=== PATIENT | female | born 1965 | race Caucasian/White ===

== ENCOUNTER 2020-05-07 14:15 | Inpatient (IN) | payer MEDICAID ==
[~2020-05-07] VITALS: Ht 162.6 cm; Wt 158.8 kg
[2020-05-07 14:38] LABS: BASO % 0.3 % (0.0-1.0); EOS # 0.3 10*3/uL (0.0-0.4); EOS % 4.3 % (1.0-4.0); HEMATOCRIT 37.7 % (37.0-47.0); LYMPH # 0.9 10*3/uL (1.3-4.4); LYMPH % 11.4 % (27.0-41.0); MEAN CELL VOLUME 84.7 fl (81.0-99.0); MEAN CORPUSCULAR HGB 26.5 pg (27.0-31.0); MEAN CORPUSCULAR HGB CONC 31.3 g/dl (33.0-37.0); MEAN PLATELET VOLUME 10.8 fl (9.6-12.3); MONO # 0.5 10*3/uL (0.1-1.0); MONO % 6.7 % (3.0-9.0); NEUT # 5.9 10*3/uL (2.3-7.9); NEUT % 76.4 % (47.0-73.0); PLATELET COUNT AUTOMATED 242 10*3/uL (130-400); RED BLOOD COUNT 4.45 10*6/uL (4.10-5.10); RED CELL DISTRI WIDTH 16.5 % (0-14.5); WHITE BLOOD COUNT 7.7 10*3/uL (4.8-10.8)
[2020-05-07 14:40] VITALS: BP 138/86
[2020-05-07 14:48] LABS: ACT PARTIAL THROMBO TIME 23.5 SECONDS (20.0-32.1)
[2020-05-07 15:04] LABS: ALBUMIN 3.1 gm/dl (3.1-4.5); ALKALINE PHOSPHATASE 92 U/L (45-117); BUN 21 mg/dl (7-24); CHLORIDE 108 mmol/L (98-107); CREATININE 0.75 mg/dL (0.55-1.02); POTASSIUM 4.3 mmol/L (3.5-5.1); SGOT/AST 10 IU/L (3-35); SGPT/ALT 21 U/L (12-78); SODIUM 140 mmol/L (136-145); TOTAL PROTEIN 6.6 gm/dL (6.4-8.2)
[2020-05-07 15:05] LABS: TROPONIN I < 0.015 ng/ml (<0.045)
[2020-05-07 16:17] VITALS: BP 130/82
--- NOTE | 2020-05-07 17:06 | NUR ---
A 54, admitted to , under the services of Dr. JAD HENDERSON,GABY Amezquita with a diagnosis of CHEST PAIN. Chief complaint is CHEST PAIN. Patient arrived via stretcher from ER. Monitor applied. Initial assessment completed. Vital signs taken and recorded. DR. JAD HENDERSON,GABY Amezquita notified of admission to the unit. Orders received. See assessment for past medical history, medications and allergies. Patient and/or family oriented to unit. [address] visitation policy reviewed. Clothing/patient valuable form completed. LUÍS WOODALL
[2020-05-07 17:22] LABS: BILIRUBIN 1+ (NEGATIVE); BLOOD NEGATIVE (NEGATIVE); CLARITY SL CLOUDY (CLEAR); COLOR YELLOW (YELLOW); GLUCOSE NEGATIVE (NEGATIVE); KETONE NEGATIVE (NEGATIVE); LEUKO ESTERASE TRACE (NEGATIVE); NITRITE NEGATIVE (NEGATIVE); SPECIFIC GRAVITY 1.025 (1.005-1.030); UROBILINOGEN 0.2 E.U./dl (0.2-1.0)
[2020-05-07 17:23] LABS: BACTERIA 2+; EPITHELIAL CELLS TNTC
--- NOTE | 2020-05-07 17:53 | NUR ---
ATTEMPTED TO CALL FOR ADMISSION ORDERS. AWAITING CALL BACK.
--- NOTE | 2020-05-07 18:00 | NUR ---
SPROKE WITH JAD REGARDING NEW ADMISSION. SEE NEW ORDERS.
[2020-05-07] MEDS ORDERED: ASPIRIN81 M1 PO (18:36)
[2020-05-07] MEDS ORDERED: CITALOPRAM40 MG PO (18:37)
[2020-05-07] MEDS ORDERED: CLONIDINE0.2 MG PO (18:40)
[2020-05-07] MEDS ORDERED: CYCLOBENZAPRINE10 MG PO (18:41)
[2020-05-07] MEDS ORDERED: HYDRALAZINE HYD50 MG PO (18:42)
[2020-05-07] MEDS ORDERED: IBU600 M1 PO (18:48)
[2020-05-07] MEDS ORDERED: LOVASTATIN20 MG PO (18:48)
[2020-05-07] MEDS ORDERED: LOSARTAN POTASS25 M1 PO (18:48)
[2020-05-07] MEDS ORDERED: METFORMIN HYDR750 MG PO (18:49)
[2020-05-07] MEDS ORDERED: Magnesium Oxid400 MG PO (18:49)
[2020-05-07] MEDS ORDERED: LOPRESSOR100 M1 PO (18:50)
[2020-05-07] MEDS ORDERED: PANTOPRAZOLE SO40 MG PO (18:51)
[2020-05-07] MEDS ORDERED: KLOR-CON M2020 ME1 PO (18:51)
[2020-05-07] MEDS ORDERED: NON-ASPIRIN EX500 M1 PO (18:52)
[2020-05-07] MEDS ORDERED: TRAZODONE100 MG PO (18:53)
[2020-05-07] MEDS ORDERED: QVAR REDIHALE10.6 GM INH (18:53)
[2020-05-07] MEDS ORDERED: VICTOZA 3-0.6 MG/0.1 SC (18:55)
[2020-05-07] MEDS ORDERED: VITAMIN D350 MC1 PO (18:56)
[2020-05-07] MEDS ORDERED: PROVENTIL HFA6.7 GM INH (18:58)
[2020-05-07] MEDS ORDERED: HYDROXYZINE PAM25 M1 PO (18:58)
[2020-05-07] MEDS ORDERED: CLONIDINE0.3 MG PO (19:03)
[2020-05-07 20:00] VITALS: BP 133/85
--- NOTE | 2020-05-07 21:15 | NUR ---
SPOKE WITH DR. STREET AT THIS TIME. PATIENT STATES THAT THE TYLENOL IS INEFFECTIVE FOR PAIN. AND PATIENT STATES SHE FEELS SHE HAS A LOT OF GAS AND HER ABDOMEN HURTS. PATIENT STATES WHEN PUSHING ON HER CHEST IT ALSO HURTS. PATIENT STATED THIS HAS BEEN GOING ON FOR A WEEK. WELL HAVING LIQUID STOOLS OFF AND ON. SHE STATES THE PAIN IS WORSE AFTER SHE EATS. SHE ALSO STATED SHE HAD TO HAVE HER GALLBLADDER OUT DUE TO STONES AND HAS HAD STENTS IN HER BILE DUCTS. THIS WAS ALL RELAYED TO DR. STREET WHO ORDERED ANOTHER EKG AND ORDERED QUESTRAN 2G TID TO START NOW
--- NOTE | 2020-05-07 23:15 | NUR ---
SPOKE WITH DR. STREET AT THIS TIME, PATIENT IS INSISTANT ABOUT HAVING FLEXERIL AND VISTARIL. DR. STREET STATED IT WAS OK TO CONTINUE
--- NOTE | 2020-05-07 23:54 | NUR ---
FLEXERIL AND VISTARIL ADMINISTERED FOR PT C/O ANXIETY AND LEG CRAMPS. WILL MONITOR.
[2020-05-08] VITALS: BP 119/61
--- NOTE | 2020-05-08 00:40 | NUR ---
PATIENT STATED THAT QUESTRAN WAS EFFECTIVE FOR HER PAIN AND DISCOMFORT
--- NOTE | 2020-05-08 02:38 | NUR ---
24 HR chart check completed.
--- NOTE | 2020-05-08 07:20 | NUR ---
BARON STARKS [id number] Please refer to the physician's history and physical for past medical history, comorbid conditions, and allergies. Diagnosis: CHEST PAIN WITH LOW RISK FOR CARDIAC ETIOLOGY Alexandre Score: 18,AT RISK WOUND DESCRIPTIONS: This nurse went to assess patient for skin impairment. 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 No drainage at time of assessment. No odor noted at time of assessment. Surface the patient is resting on: Proform SKIN PREVENTION RECOMMENDATION: 1. Pressure redistribution support surface as appropriate 2. Elevate heels 3. Remove boots/TEDS every shift and reapply 4. Head of bed 30 degrees as tolerated 5. Assess nutrition and hydration 6. Manage moisture 7. Avoid the use of containment devices while in bed 8. Use absorptive products on surfaces limit layers of linens on bed 9. Turn and reposition every 1-2 hours in bed and every 1 hour in chair as tolerated 10. Weight shifts every 15 minutes while up in chair 11. Offloading with pillows or device to keep heels elevated off bed 12. Monitor skin at least every shift 13. Inspect under medical devices twice a day WOUND TREATMENT RECOMMENDATIONS: Cleanse right lower quadrant ostomy site with nss and apply optifoam gentle every 2 days and prn for soiling.
--- NOTE | 2020-05-08 07:45 | NUR ---
PHYSICAL THERAPY Screen recieved, patient admitted from home with acute chest pain. Please consult PT is patient has decline in functional status below baseline. Thank you. Jeevan Silvestre SPT Rin Arceo PT
--- NOTE | 2020-05-08 07:45 | NUR ---
INFORMED NURSE ABOUT PATIENT COMPLAING OF PAIN OF 10 ON PAIN SCALE IN STERUN AREA AND UNDER LEFT BREAST. CASEY MCCORMACK
[2020-05-08 08:00] VITALS: BP 142/74
--- NOTE | 2020-05-08 08:38 | NUR ---
24 HR CHART CHECK COMPLETE.
--- NOTE | 2020-05-08 08:39 | NUR ---
Nursing screen received and chart was reviwed. Patient is a 54 y/o female under observation for chest pain. If patient has a decline with ADLs, functional mobility or transfers please send occupational therapy orders. Thank you. Rosalba Ronquillo OTR/L
--- NOTE | 2020-05-08 09:00 | NUR ---
Secondary Spanish Teacher in to talk to patient. Patient states lives at [facility]. There are 0 steps in the home. Physician: Dr. Ricky Resendiz Pharmacy: [facility] Home health services: none Patient's level of ADLs: MINIMAL ASSIST Patient has working utilities: yes DME: cane, walker, requesting a bariatric rollator Follow-up physician's appointment after d/c: she prefers to make her own follow up appt after discharge Does patient want to access PORTAL?: no Discharge plan discussed with patient. She lives at [facility]. She states she is independent in her ADLs and either ambulates with a cane or a walker. She would like a scooter but [facility] will not allow. She would like to see if she would be able to get a bariatric rollator. Notified Dr. Resendiz. Discussed short term rehab and home health care services and she declines. She states she doesn't have transportation home once discharged. Explained her [place] Medicaid will provide transportation. Gave her the phone number to call and she verbalized an understanding. When medically stable she will be discharged to home. JOSÉ ADORNO
--- NOTE | 2020-05-08 11:50 | NUR ---
INFORMED SIGNED CONSENT OBTAINED FOR LEXISCAN STRESS TEST WITH DR KEVIN. RESTING EKG NSR HR 76 BP 128/68. T WAVE INVERSION AVR. PULSE OX 96% LUNGS CLEAR. PT COMPLETED ONE MINUTE OF A LEXISCAN PROTOCOL WITH PT RECEIVING LEXISCAN 0.4 MG IV OVER 10 SECONDS. NO ARRHYTHMIAS OR ST CHANGES NOTED. WITH INJECTION PT C/O SOB AND COUGH. LAST RECOVERY HR OF 92 BP 118/68. PT IN STABLE CONDITION, AWAITING NUCLEAR IMAGES.
--- NOTE | 2020-05-08 12:29 | NUR ---
Faxed prescription for bariatric rollator to [facility]. Awaiting response.
--- NOTE | 2020-05-08 14:15 | NUR ---
Received call from Any Whitney at [facility]. They have to order the bariatric rollator, when it arrives, they will deliver to patient. Patient notified.
[2020-05-08 16:00] VITALS: BP 116/54
[2020-05-08 20:00] VITALS: BP 143/89
[2020-05-09] VITALS: BP 138/76
[2020-05-09 08:00] VITALS: BP 113/57
--- NOTE | 2020-05-09 09:30 | NUR ---
PRN NORCO EFFECTIVE PER PT.
[2020-05-09 12:00] VITALS: BP 127/53
[2020-05-09] MEDS ORDERED: QUESTRAN LIGHT4 GM PO (15:31)
--- NOTE | 2020-05-09 16:49 | NUR ---
PT DISCHARGED TO [facility] AT THIS TIME. 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 DANIELLA HENNING. PT TRANSPORTED OUT VIA WHEELCHAIR TO PRIVATE CAR.
== END 2020-05-09 16:49 | disposition home or self-care (01) | DRG 203 ==
LOC: ED 14:15 → EDHOLD 15:57 → 4E 16:49
PROVIDERS: Emergency Medicine; ADMIT Internal Medicine
PROC: 4A02XM4 Measurement of Cardiac Total Activity, External Approach (ICD-10-PCS; principal; 2020-05-08)
PROC: 3E073KZ Introduction of Other Diagnostic Substance into Coronary Artery, Percutaneous Approach (ICD-10-PCS; 2020-05-08)
DX: R07.2 Precordial pain (principal); I10 Essential (primary) hypertension; F51.01 Primary insomnia; E11.9 Type 2 diabetes mellitus without complications; F31.9 Bipolar disorder, unspecified; F41.1 Generalized anxiety disorder; G47.39 Other sleep apnea; J45.20 Mild intermittent asthma, uncomplicated; K52.9 Noninfective gastroenteritis and colitis, unspecified; M19.90 Unspecified osteoarthritis, unspecified site; E78.00 Pure hypercholesterolemia, unspecified; E66.01 Morbid (severe) obesity due to excess calories; M81.0 Age-related osteoporosis without current pathological fracture; K21.0 Gastro-esophageal reflux disease with esophagitis; Z88.1 Allergy status to other antibiotic agents; Z88.8 Allergy status to other drugs, medicaments and biological substances; Z90.49 Acquired absence of other specified parts of digestive tract; Z68.44 Body mass index [BMI] 60.0-69.9, adult